=== PATIENT | male | born 1950 | race Asian ===

== ENCOUNTER 2022-08-19 02:09 | Emergency (ER) | payer OTHER ==
[2022-08-19] MEDS ORDERED: ACETAMINOPHEN 1000 MG/100 ML BAG IVPB ONE (03:34)
[2022-08-19] MEDS ORDERED: DIPHTH,PERTUSS(ACELL),TET 0.5 ML DISP.SYRIN IM ONE ×2 (03:35→03:42)
[2022-08-19] MEDS ORDERED: CEFAZOLIN 1 GM in DEXTROSE 5%-WATER - 50 ML IVPB ONE (03:35)
[2022-08-19 03:38] LABS: URINE APPEARANCE CLEAR; URINE BILIRUBIN NEGATIVE (NEGATIVE); URINE COLOR YELLOW; URINE GLUCOSE (UA) NEGATIVE (NEGATIVE); URINE KETONE TRACE (NEGATIVE); URINE LEUK ESTERASE NEGATIVE (NEGATIVE); URINE NITRITE NEGATIVE (NEGATIVE); URINE PROTEIN NEGATIVE (NEGATIVE)
[2022-08-19] MEDS ORDERED: ACETAMINOPHEN INJECTION 100 ML IVPB ONE (03:41)
[2022-08-19 03:42] LABS: BASO % 0.5 % (0-2.0); HEMATOCRIT 41.1 % (35.4-49); HEMOGLOBIN 13.4 GM/dL (11.7-16.9); LYMPH % 6.6 % (8-40); MCHC 32.5 g/dl (32.0-35.9); MEAN CELL VOLUME 92.3 fl (80-96); MEAN PLT VOLUME 7.4 fl (7.5-11.1); MONO % 12.3 % (3.8-10.2); NEUT % 80.6 % (42.8-82.8); PLATELET COUNT 257 10^3/uL (134-434); RBC 4.45 M/mm3 (4.00-5.60); RDW 13.5 % (11.9-15.9); WHITE BLOOD COUNT 7.7 K/mm3 (4.0-10.0)
[2022-08-19] MEDS ORDERED: ceFAZolin SODIUM 1 GM VIAL ONE (03:42)
[2022-08-19 03:59] LABS: CHLORIDE 103 mmol/L (98-107)
[2022-08-19 04:01] LABS: BLOOD UREA NITROGEN 11.3 mg/dL (7-18); CALCIUM 8.8 mg/dL (8.5-10.1); CO2 26 mmol/L (21-32)
[2022-08-19 04:02] LABS: ALBUMIN 3.8 g/dl (3.4-5.0)
[2022-08-19 04:04] LABS: CREATININE 0.9 mg/dL (0.55-1.3); SGOT/AST 31 U/L (15-37); SGPT/ALT 29 U/L (13-61)
[2022-08-19 04:06] LABS: BILIRUBIN,TOTAL 0.4 mg/dL (0.2-1); TOT PROT 6.9 g/dl (6.4-8.2)
[2022-08-19 04:07] LABS: ALK PHOS 79 U/L (45-117)
[2022-08-19] MEDS ORDERED: ONDANSETRON 4 MG/2 ML VIAL IVPUSH ONE ×2 (04:09→06:50)
[2022-08-19] MEDS ORDERED: ONDANSETRON 4 MG/2 ML VIAL ONE ×2 (04:09→06:54)
[2022-08-19 05:01] LABS: ANION GAP 11 MMOL/L (8-16); GLUCOSE,RANDOM 107 mg/dL (74-106); SODIUM 140 mmol/L (136-145)
[2022-08-19] MEDS ORDERED: traMADol HCL 50 MG TABLET PO ONE (06:41)
[2022-08-19] MEDS ORDERED: traMADol HCL 50 MG TABLET ONE (06:54)
[2022-08-19 10:03] VITALS: BP 104/63; PULSE 70; RESP 18; TEMP 98.7
== END 2022-08-19 11:09 | disposition short-term general hospital (02) ==
LOC: FER 02:09
PROC: 3E0333Z Introduction of Anti-inflammatory into Peripheral Vein, Percutaneous Approach (ICD-10-PCS; principal; 2022-08-19)
PROC: 3E03329 Introduction of Other Anti-infective into Peripheral Vein, Percutaneous Approach (ICD-10-PCS; 2022-08-19)
PROC: 3E033GC Introduction of Other Therapeutic Substance into Peripheral Vein, Percutaneous Approach (ICD-10-PCS; 2022-08-19)
PROC: 3E033GC Introduction of Other Therapeutic Substance into Peripheral Vein, Percutaneous Approach (ICD-10-PCS; 2022-08-19)
PROC: 3E0234Z Introduction of Serum, Toxoid and Vaccine into Muscle, Percutaneous Approach (ICD-10-PCS; 2022-08-19)
PROC: 0HQ1XZZ Repair Face Skin, External Approach (ICD-10-PCS; 2022-08-19)
DX: S02.672B Fracture of alveolus of left mandible, initial encounter for open fracture (principal); S01.81XA Laceration without foreign body of other part of head, initial encounter; R55 Syncope and collapse; W01.198A Fall on same level from slipping, tripping and stumbling with subsequent striking against other object, initial encounter
CPT/HCPCS: 12002-25; 36415; 70450-TC; 70486-TC; 71045-TC-FY; 72125-TC; 80053; 81003; 84484; 85025; 87086; 90471; 90715; 93005; 96374; 96375; 96376; 99285-25; C9803-CS; U0003; U0005

== ENCOUNTER 2025-03-04 09:41 | Emergency (ER) | payer OTHER ==
[2025-03-04 10:32] VITALS: BP 149/73; PULSE 84; RESP 20; TEMP 98.6
== END 2025-03-04 10:37 | disposition home or self-care (01) ==
LOC: FER 09:41
DX: R11.2 Nausea with vomiting, unspecified (principal); R19.7 Diarrhea, unspecified
CPT/HCPCS: 87637-QW; 99283-25